=== PATIENT | female | born 1965 | race Two or more races ===

== ENCOUNTER 2017-01-30 13:18 | Inpatient (IN) | payer MEDICAID ==
[~2017-01-30] VITALS: Ht 157.5 cm; Wt 124.3 kg
[2017-01-30] MEDS ORDERED: ASPIRIN 81MG TABLET PO ONE (14:00)
[2017-01-30] MEDS: NITROGLYCERIN 0.4MG TABLET SL SL PRN ×3 (14:08→14:21)
[2017-01-30 14:17] LABS: HEMATOCRIT. 41.1 % (36.0-48.0); HEMOGLOBIN. 13.9 g/dL (12.0-16.0); MEAN CORPUSCULAR HEMOGLOBIN 29.7 pg (28.0-32.0); MEAN CORPUSCULAR VOLUME 87.6 fL (81.0-99.0); MEAN PLATELET VOLUME 7.8 fl (7.4-10.4); PLATELET 274 x1000/uL (130-400); RED BLOOD CELL COUNT 4.69 mill/uL (4.2-5.4); RED CELL DISTRIBUTION WIDTH 13.3 % (11.6-14.6)
[2017-01-30 14:20] LABS: INR 0.9; PROTHROMBIN TIME 9.6 sec
[2017-01-30 14:22] LABS: CARBON DIOXIDE 32 mEq/L (21-32); CHLORIDE 95 mEq/L (98-107)
[2017-01-30 14:27] LABS: TROPONIN I < 0.02 ng/mL (0.00-0.04)
[2017-01-30] MEDS ORDERED: MORPHINE SULFATE 4 MG/ML CPJ (NOT FOR IM USE) IV ONE (15:00)
[2017-01-30 15:24] LABS: PLATELET ESTIMATE NORMAL
[2017-01-30] MEDS ORDERED: POTASSIUM CHLORIDE 20MEQ TABLET SR PO NR (15:30)
[2017-01-30 16:00] VITALS: BP 120/67
[2017-01-30] MEDS ORDERED: INSULIN REGULAR (HUMULIN R) 300UNITS/3ML SUBCUT NR (16:00)
[2017-01-30 17:10] VITALS: BP 120/67
[2017-01-30 17:14] VITALS: BP 120/67
[2017-01-30] MEDS ORDERED: PREG100C PO (17:46)
[2017-01-30] MEDS ORDERED: SERT-112 PO (17:46)
[2017-01-30] MEDS ORDERED: PROP80CA2 PO (17:50)
[2017-01-30] MEDS ORDERED: FURO-151 PO (17:50)
[2017-01-30] MEDS ORDERED: ASPI-1159 PO (17:50)
[2017-01-30] MEDS ORDERED: DOCU-138 PO (17:50)
[2017-01-30] MEDS ORDERED: POTA-9 PO (17:50)
[2017-01-30] MEDS ORDERED: LOSA25TA12 PO (17:52)
[2017-01-30] MEDS ORDERED: DULO60CA44 PO (17:52)
[2017-01-30] MEDS ORDERED: DESV50TA4 PO (17:52)
[2017-01-30] MEDS ORDERED: ALBU18HF2 IH (17:53)
[2017-01-30] MEDS ORDERED: IPRATROPIUM/ALBUTEROL 0.5-3(2.5)MG/3ML NEB HHN SCH (18:00)
[2017-01-30] MEDS ORDERED: DEXTROSE 50% WATER 50ML SYRINGE IV PRN (18:30)
[2017-01-30] MEDS ORDERED: KETOROLAC 15MG/ML VIAL IV PRN (18:30)
[2017-01-30] MEDS ORDERED: MORPHINE SULFATE 2 MG/ML CPJ (NOT FOR IM USE) IV PRN (18:30)
[2017-01-30 20:00] VITALS: BP 139/63
[2017-01-30] MEDS ORDERED: PNEUMOCOCCAL 23-VAL P-SAC VAC 0.5 ML IM ONE (20:00)
[2017-01-30] MEDS: AMLODIPINE 2.5MG TABLET PO SCH (21:02)
[2017-01-30] MEDS: BLOOD SUGAR DIAGNOSTIC STRIP TEST SCH (21:03)
[2017-01-30] MEDS: INSULIN LISPRO 100 UNITS/ML SUBCUT SCH (21:03)
[2017-01-30] MEDS: ENOXAPARIN 40MG/0.4ML SYR SUBCUT SCH (21:05)
[2017-01-30] MEDS: PROPRANOLOL HCL 20MG TABLET PO SCH (21:12)
[2017-01-31] VITALS: BP 110/62
[2017-01-31] MEDS: IPRATROPIUM/ALBUTEROL 0.5-3(2.5)MG/3ML NEB HHN SCH ×5 (03:05→20:01)
[2017-01-31 04:00] VITALS: BP 122/64
[2017-01-31 06:36] LABS: HEMOGLOBIN. 13.9 g/dL (12.0-16.0); MEAN CORPUSCULAR HEMOGLOBIN 29.7 pg (28.0-32.0); MEAN CORPUSCULAR VOLUME 87.8 fL (81.0-99.0); PLATELET 279 x1000/uL (130-400); RED BLOOD CELL COUNT 4.67 mill/uL (4.2-5.4); RED CELL DISTRIBUTION WIDTH 13.2 % (11.6-14.6)
[2017-01-31 06:38] LABS: CARBON DIOXIDE 33 mEq/L (21-32); CHLORIDE 96 mEq/L (98-107); HDL CHOLESTEROL 47 mg/dL (40-59); LDL CHOLESTEROL 100 mg/dL (5-100); TROPONIN I < 0.02 ng/mL (0.00-0.04)
[2017-01-31] MEDS: BLOOD SUGAR DIAGNOSTIC STRIP TEST SCH ×4 (07:25→21:00)
[2017-01-31 08:00] VITALS: BP 149/68
[2017-01-31] MEDS: ENOXAPARIN 40MG/0.4ML SYR SUBCUT SCH ×2 (08:12→22:06)
[2017-01-31] MEDS: FUROSEMIDE 40MG/4ML VIAL IVP SCH (08:12)
[2017-01-31] MEDS: LOSARTAN POTASSIUM 25 MG TABLET PO SCH (08:13)
[2017-01-31] MEDS: PROPRANOLOL HCL 20MG TABLET PO SCH ×2 (08:13→22:05)
[2017-01-31] MEDS: DOCUSATE SODIUM 100MG CAPSULE PO SCH (08:13)
[2017-01-31] MEDS: POTASSIUM CHLORIDE 10MEQ TABLET SR PO SCH (08:13)
[2017-01-31] MEDS: AMLODIPINE 2.5MG TABLET PO SCH ×2 (08:14→22:05)
[2017-01-31] MEDS: INSULIN LISPRO 100 UNITS/ML SUBCUT SCH (08:16)
[2017-01-31] MEDS: ASPIRIN 325MG TABLET PO SCH (08:21)
[2017-01-31] MEDS ORDERED: ENOXAPARIN 40MG/0.4ML SYR SUBCUT SCH (09:00)
[2017-01-31] MEDS ORDERED: ASPIRIN 81MG EC TABLET PO SCH (09:00)
[2017-01-31] MEDS ORDERED: PREGABALIN 25MG CAPSULE PO SCH (09:00)
[2017-01-31] MEDS: PREGABALIN 50 MG CAPSULE PO SCH (09:49)
[2017-01-31 12:00] VITALS: BP 116/59
[2017-01-31] MEDS ORDERED: IOHEXOL-300 100 ML BOTTLE ONE (13:01)
[2017-01-31] MEDS ORDERED: SODIUM CHLORIDE 0.9% 10ML VIAL ONE (13:01)
[2017-01-31] MEDS ORDERED: POTASSIUM CHLORIDE 20MEQ TABLET SR PO SCH (13:30)
[2017-01-31] MEDS: INSULIN REGULAR (HUMULIN R) 300UNITS/3ML SUBCUT SCH ×2 (13:37→17:22)
[2017-01-31] MEDS: PROPYLENE GLYCOL/PEG 400 15 ML DROPS BOTHEYE SCH (13:38)
[2017-01-31] MEDS: INSULIN DETEMIR UD 100 UNITS/ML SYR SUBCUT SCH ×2 (15:02→22:24)
[2017-01-31] MEDS: PREDNISONE 20MG TABLET PO SCH (15:03)
[2017-01-31 16:00] VITALS: BP 128/83
[2017-01-31 17:44] LABS: PLATELET ESTIMATE NORMAL
[2017-01-31 20:00] VITALS: BP 112/49
[2017-02-01] VITALS: BP 122/59
[2017-02-01] MEDS: IPRATROPIUM/ALBUTEROL 0.5-3(2.5)MG/3ML NEB HHN SCH ×5 (00:07→15:50)
[2017-02-01 04:00] VITALS: BP 118/57
[2017-02-01 06:48] LABS: CARBON DIOXIDE 31 mEq/L (21-32); CHLORIDE 101 mEq/L (98-107)
[2017-02-01 07:20] LABS: BASOPHILS % 0.3 % (0.0-2.0); EOSINOPHILS % 0.2 % (0.0-5.0); HEMATOCRIT. 43.9 % (36.0-48.0); HEMOGLOBIN. 14.6 g/dL (12.0-16.0); LYMPHOCYTES % 13.5 % (20.0-50.0); MEAN CORPUSCULAR HEMOGLOBIN 29.4 pg (28.0-32.0); MEAN CORPUSCULAR VOLUME 88.3 fL (81.0-99.0); MEAN PLATELET VOLUME 8.3 fl (7.4-10.4); MONOCYTES % 4.3 % (2.0-8.0); NEUTROPHILS % 81.7 % (40.0-76.0); PLATELET 305 x1000/uL (130-400); RED BLOOD CELL COUNT 4.97 mill/uL (4.2-5.4); RED CELL DISTRIBUTION WIDTH 13.3 % (11.6-14.6)
[2017-02-01] MEDS: BLOOD SUGAR DIAGNOSTIC STRIP TEST SCH ×2 (07:40→12:40)
[2017-02-01 08:00] VITALS: BP 83/52
[2017-02-01] MEDS ORDERED: SODIUM CHLORIDE 0.9% 500 ML IV NR (08:15)
[2017-02-01] MEDS: DOCUSATE SODIUM 100MG CAPSULE PO SCH (08:39)
[2017-02-01] MEDS: PREGABALIN 50 MG CAPSULE PO SCH (08:39)
[2017-02-01] MEDS: ASPIRIN 325MG TABLET PO SCH (08:39)
[2017-02-01] MEDS: POTASSIUM CHLORIDE 10MEQ TABLET SR PO SCH (08:39)
[2017-02-01] MEDS: PROPYLENE GLYCOL/PEG 400 15 ML DROPS BOTHEYE SCH (08:40)
[2017-02-01] MEDS: ENOXAPARIN 40MG/0.4ML SYR SUBCUT SCH (08:40)
[2017-02-01] MEDS: AMLODIPINE 2.5MG TABLET PO SCH (08:42)
[2017-02-01] MEDS: PROPRANOLOL HCL 20MG TABLET PO SCH (08:42)
[2017-02-01] MEDS: LOSARTAN POTASSIUM 25 MG TABLET PO SCH (08:42)
[2017-02-01] MEDS: FUROSEMIDE 40MG/4ML VIAL IVP SCH (08:44)
[2017-02-01] MEDS: PREDNISONE 20MG TABLET PO SCH (08:52)
[2017-02-01] MEDS: INSULIN REGULAR (HUMULIN R) 300UNITS/3ML SUBCUT SCH ×2 (08:54→14:12)
[2017-02-01] MEDS: INSULIN DETEMIR UD 100 UNITS/ML SYR SUBCUT SCH (11:26)
[2017-02-01 12:00] VITALS: BP 109/62
[2017-02-01 15:54] VITALS: BP 120/58
[2017-02-01 16:00] VITALS: BP 120/58
== END 2017-02-01 16:40 | disposition home or self-care (01) | DRG 133 ==
LOC: ER 14:58 → 7WST 15:09 → ENRESERV 16:10 → CANBEDREQ 16:17
PROVIDERS: ADMIT Internal Medicine; ATTEND Internal Medicine
DX: J96.21 Acute and chronic respiratory failure with hypoxia (principal); I95.9 Hypotension, unspecified; I11.0 Hypertensive heart disease with heart failure; Z68.43 Body mass index [BMI] 50.0-59.9, adult; I50.9 Heart failure, unspecified; E11.65 Type 2 diabetes mellitus with hyperglycemia; Z99.81 Dependence on supplemental oxygen; J45.901 Unspecified asthma with (acute) exacerbation; E87.6 Hypokalemia; E66.09 Other obesity due to excess calories; G47.33 Obstructive sleep apnea (adult) (pediatric); F32.9 Major depressive disorder, single episode, unspecified; Z79.4 Long term (current) use of insulin
CPT/HCPCS: 36415; 71010; 71275; 80048; 80053; 80061; 82962; 83880; 84443; 84484; 85025; 85379; 85610; 90732; 93005; 93306; 94640; 96372; 96374; 99285; A4216; J1650; J1815; J1940; J2270; J7040; J7050; J7512; J7620; Q9967; A4315